=== PATIENT | female | born 1990 | race Two or more races ===

== ENCOUNTER 2019-11-15 10:23 | Outpatient (CLI) | payer OTHER ==
[2019-11-15 11:29] LABS: ANION GAP 6 mmol/L (5-15); CALCIUM 9.1 mg/dL (8.5-10.1); CHLORIDE 106 mmol/L (98-107); CREATININE 0.67 mg/dL (0.55-1.02)
[2019-11-15 11:31] LABS: BASOPHILS # (AUTO) 0.03 x10^3/uL (0-0.1); BASOPHILS % (AUTO) 0 % (0-1); EOSINOPHILS # (AUTO) 0.07 x10^3/uL (0-0.4); EOSINOPHILS % (AUTO) 1 % (1-7); LYMPHOCYTES # (AUTO) 2.69 x10^3/uL (1-3.4); LYMPHOCYTES % (AUTO) 41 % (22-44); MD NO; MEAN CORPUSCULAR HEMOGLOBIN 30.2 pg (27.0-34.8); MEAN CORPUSCULAR HGB CONC 33.7 g/dL (32.4-35.8); MEAN CORPUSCULAR VOLUME 89.5 fL (80-100); MEAN PLATELET VOLUME 7.8 fL (7.4-10.4); MONOCYTES # (AUTO) 0.39 x10^3/uL (0.2-0.8); MONOCYTES % (AUTO) 6 % (2-9); NEUTROPHILS # (AUTO) 3.36 x10^3/uL (1.8-6.8); NEUTROPHILS % (AUTO) 51 % (42-75); PLATELET COUNT 284 x10^3/uL (130-400); RED BLOOD COUNT 4.62 x10^6/uL (3.82-5.3); RED CELL DISTRIBUTION WIDTH 12.9 % (9.6-15.2)
[2019-11-15] MEDS ORDERED: FEXO1TAB29 PO (12:13)
== END 2019-11-15 23:59 | disposition home or self-care (01) ==
LOC: STAR 10:23
PROVIDERS: ATTEND Obstetrics & Gynecology Maternal & Fetal Medicine
DX: Z01.818 Encounter for other preprocedural examination (principal); N97.8 Female infertility of other origin
CPT/HCPCS: 36415; 80048; 84702; 85025; U0001-CS

== ENCOUNTER 2019-11-23 13:46 | Day surgery (SDC) | payer OTHER ==
[~2019-11-23] VITALS: Ht 157.5 cm; Wt 75.1 kg
[~2019-11-23 13:46] MED LIST: FEXO1TAB29 PO
[2019-11-23] MEDS ORDERED: LACTATED RINGERS 1,000 ML IV SCH ×2 (14:06→22:00)
[2019-11-23] MEDS ORDERED: CHLORHEXIDINE 15 ML UDC MM ONE (14:30)
[2019-11-23 15:06] LABS: HCG UR SG 1.009 (1.003-1.030)
[2019-11-23] MEDS ORDERED: NEOSPORIN OINT. PKT 1 PACKET ONE (15:33)
[2019-11-23] MEDS ORDERED: BUPIVACAINE/PF-EPI 0.25% 1:200K ONE (15:33)
[2019-11-23] MEDS ORDERED: LIDOCAINE-MPF 2% ,5ML ONE (15:39)
[2019-11-23] MEDS ORDERED: FENTANYL PF 100 MCG/2ML ONE ×2 (15:39→17:22)
[2019-11-23] MEDS ORDERED: MIDAZOLAM 1 MG/ML, 2ML ONE (15:39)
[2019-11-23] MEDS ORDERED: KETOROLAC 30 MG/1 ML ONE (16:14)
[2019-11-23] MEDS ORDERED: LORazepam 2 MG/ML, 1ML IVPush PRN (16:30)
[2019-11-23] MEDS ORDERED: HYDROmorphone 1 MG/ML, 1ML INJ IVPush PRN (16:30)
[2019-11-23] MEDS ORDERED: FENTANYL PF 100 MCG/2ML IV PRN (16:30)
[2019-11-23] MEDS ORDERED: MEPERIDINE/PF 25MG/0.5ML IVPush PRN (16:30)
[2019-11-23] MEDS ORDERED: ACETAMINOPHEN 325 MG TABLET PO PRN (16:30)
[2019-11-23] MEDS ORDERED: PROMETHAZINE 25 MG/ML, 1ML IVPush PRN (16:30)
[2019-11-23] MEDS ORDERED: OXYcodone 5 MG/5 ML ORAL.SOL UDC PO PRN (16:30)
[2019-11-23] MEDS ORDERED: ROCURONIUM 10MG/ML,5ML ONE (17:07)
[2019-11-23] MEDS ORDERED: DEXAMETHASONE 4 MG/ML, 1ML ONE (17:07)
[2019-11-23] MEDS ORDERED: ONDANSETRON 2MG/ML, 2ML ONE (17:07)
[2019-11-23] MEDS ORDERED: SUCCINYLCHOLINE 20 MG/ML, 10ML ONE (17:07)
[2019-11-23] MEDS ORDERED: PROPOFOL 10 MG/ML, 20ML ONE (17:07)
[2019-11-23] MEDS ORDERED: SUGAMMADEX 200 MG/2 ML IVPush ONE (17:07)
[2019-11-23] MEDS ORDERED: OXYcodone 5 MG/5 ML ORAL.SOL UDC ONE (17:22)
[2019-11-23 19:25] VITALS: BP 102/72
[2019-11-23] MEDS ORDERED: OXYC-302 PO (20:10)
[2019-11-23] MEDS ORDERED: IBUP-1222 PO (20:11)
[2019-11-23] MEDS ORDERED: LACTATED RINGERS 1,000 ML IVBOLUS STA (21:31)
[2019-11-23] MEDS ORDERED: ONDANSETRON 2MG/ML, 2ML IVPush PRN (22:00)
[2019-11-23] MEDS ORDERED: SCOPOLAMINE 1MG PATCH TD ONE (22:00)
[2019-11-23] MEDS ORDERED: ONDANSETRON 4 MG TABLET PO PRN (22:00)
[2019-11-23] MEDS ORDERED: ONDANSETRON 2MG/ML, 2ML IVPush ONE (22:00)
[2019-11-23 22:04] LABS: BASOPHILS # (AUTO) 0.05 x10^3/uL (0-0.1); BASOPHILS % (AUTO) 0 % (0-1); EOSINOPHILS % (AUTO) 0 % (1-7); LYMPHOCYTES # (AUTO) 0.72 x10^3/uL (1-3.4); LYMPHOCYTES % (AUTO) 6 % (22-44); MD NO; MEAN CORPUSCULAR HEMOGLOBIN 30.3 pg (27.0-34.8); MEAN CORPUSCULAR HGB CONC 33.9 g/dL (32.4-35.8); MEAN CORPUSCULAR VOLUME 89.3 fL (80-100); MEAN PLATELET VOLUME 8.2 fL (7.4-10.4); MONOCYTES % (AUTO) 1 % (2-9); NEUTROPHILS # (AUTO) 10.33 x10^3/uL (1.8-6.8); NEUTROPHILS % (AUTO) 92 % (42-75); PLATELET COUNT 238 x10^3/uL (130-400); RED BLOOD COUNT 4.21 x10^6/uL (3.82-5.3); RED CELL DISTRIBUTION WIDTH 12.8 % (9.6-15.2)
[2019-11-23 22:11] LABS: ALANINE AMINOTRANSFERASE 26 U/L (12-78); ALBUMIN 3.6 g/dL (3.4-5.0); ANION GAP 9 mmol/L (5-15); CALCIUM 8.2 mg/dL (8.5-10.1); CHLORIDE 105 mmol/L (98-107)
[2019-11-23 22:14] LABS: ALKALINE PHOSPHATASE 73 U/L (45-117); BILIRUBIN,TOTAL 0.6 mg/dL (0.2-1.0); CREATININE 0.81 mg/dL (0.55-1.02); TOTAL PROTEIN 7.2 g/dL (6.4-8.2)
[2019-11-23] MEDS ORDERED: ONDA4TAB7 PO (23:07)
== END 2019-11-23 23:46 | disposition home or self-care (01) ==
LOC: OR 13:46 → 4NE 17:53 → OR 23:46
PROVIDERS: ATTEND Obstetrics & Gynecology Maternal & Fetal Medicine
DX: Z30.2 Encounter for sterilization (principal); Z79.899 Other long term (current) drug therapy; Z72.89 Other problems related to lifestyle; Z82.49 Family history of ischemic heart disease and other diseases of the circulatory system
CPT/HCPCS: 11982; 36415; 58670; 80053; 81025; 85025; 88302; J0330; J1100; J1885; J2250; J2405; J2704; J3010; J7120; G0378